=== PATIENT | female | born 1980 | race Caucasian/White ===

== ENCOUNTER 2017-05-30 09:25 | Emergency (ER) ==
[2017-05-30 09:25] VITALS: BMI 28.3
[2017-05-30 09:29] VITALS: BP 141/84; TEMP 98.6
[2017-05-30 10:12] LABS: BASOPHILS % (AUTO) 0.6 % (0.0-3.0); EOSINOPHILS # (AUTO) 0.1 K/ul (0.0-0.7); HEMOGLOBIN 13.1 g/dl (12.0-16.0); IMMATURE GRANULOCYTE % (AUTO) 0.4 % (0.0-5.0); LYMPHOCYTES # (AUTO) 1.9 K/uL (0.60-3.4); LYMPHOCYTES % (AUTO) 36.3 (10.0-50.0); MEAN CORPUSCULAR HEMOGLOBIN 27.5 pg (27.0-31.0); MEAN CORPUSCULAR HGB CONC 32.8 (31.8-35.4); MEAN CORPUSCULAR VOLUME 83.9 fl (81.0-99.0); MONOCYTES # (AUTO) 0.5 K/uL (0.4-2.0); MONOCYTES % (AUTO) 9.2 (0-10); NEUTROPHILS # (AUTO) 2.7 K/ul (2.0-6.9); NEUTROPHILS % (AUTO) 52.5; PLATELET COUNT 391 10^3/uL (140-440); RED BLOOD COUNT 4.77 10^6/ul (4.20-5.40); WHITE BLOOD COUNT 5.21 K/ul (4.6-10.2)
[2017-05-30 10:28] LABS: SERUM PREGNANCY INTERNAL QC INTERNAL QC VALID
[2017-05-30 10:43] LABS: ALBUMIN 3.6 g/dL (3.4-5.0); ALBUMIN/GLOBULIN RATIO 1.2; ANION GAP 14.2; BILIRUBIN,TOTAL 0.62 mg/dL (0.00-1.20); BUN/CREATININE RATIO 9.41; CALCIUM 9.2 mg/dL (8.2-10.2); CREATININE 0.85 mg/dL (0.60-1.30); POTASSIUM 4.2 mmol/L (3.5-5.10); TOTAL PROTEIN 6.6 g/dL (6.4-8.2); TROPONIN I 0.016 ng/ml (0.0000-0.4000)
--- NOTE | 2017-05-30 10:49 | DI ---
EXAM: Two views of the chest. History: Chest pain. Comparison: Chest radiograph 01/03/2013 Findings: Heart size is normal. No focal consolidation. No appreciable pleural fluid and no pneumo thorax. No acute osseous abnormalities. Impression: No acute cardiopulmonary process.
--- NOTE | 2017-05-30 11:15 | ED.PDOC ---
General ED Provider: Dr. LAITH FAYE Chief Complaint: Chest Pain Stated Complaint: CHEST PAIN Time Seen by Physician: 09:30 ([facility]) Mode of Arrival: Walk-In Information Source: Patient Exam Limitations: No limitations Primary Care Provider: ABELARDO GARCIA Nursing and Triage Documentation Reviewed and Agree: Yes (UNDER STRESS FROM WORK SCHOOL , ) Cardiovascular Complaint Exam - Chest Pain Complaint/Exam Onset: Gradual Duration: TODAY Symptoms Are: Resolved Length of Chest Pain Episodes: 20 MIN Initial Severity: Mild Current Severity: Mild Location: Reports: Discrete, Midsternal Pain Radiates: Reports: None Character: Reports: Dull, Aching Aggravating: Reports: None Alleviating: Reports: None Associated Signs and Symptoms: Denies: Diaphoresis, Nausea, Vomiting, Fever, Palpitations, Cough, Hemoptysis, Back pain, Abdominal pain, Dizziness, Short of air, Calf pain, Calf swelling Related Surgical History: Reports: None History of Healthcare-Acquired Pneumonia: Reports: No AMI/ACS Risk Factors: Reports: None TAD Risk Factors: Reports: None Pulmonary Embolism Risk Factors: Reports: None Prior Care for this Complaint: No Recent Stress Test: No Recent Echo/LV Function: No JVD Present: No Subcutaneous Emphysema Present: No Diminshed Breath Sounds: No Reproducible Chest Wall Pain: No Bilateral Pulses Present: No Unequal Pulses Noted: No If Risk Factors for AMI/ACS Consider: EKG, Cardiac Enzymes Differential Diagnoses: ACS, Stable Angina Review of Systems - Review Of Systems Constitutional: Reports: No symptoms Eyes: Reports: No symptoms Ears, Nose, Mouth, Throat: Reports: No symptoms Respiratory: Reports: No symptoms Cardiac: Reports: Chest pain GI: Reports: No symptoms : Reports: No symptoms Musculoskeletal: Reports: No symptoms Skin: Reports: No symptoms Neurological: Reports: No symptoms Endocrine: Reports: No symptoms Hematologic/Lymphatic: Reports: No symptoms All Other Systems: Reviewed and Negative Past Medical History - Past Medical History Previously Healthy: Yes Endocrine: Reports: Unknown Cardiovascular: Reports: Unknown Respiratory: Reports: Unknown Hematological: Reports: Unknown Gastrointestinal: Reports: Unknown Genitourinary: Reports: Unknown Neuro/Psych: Reports: Unknown Musculoskeletal: Reports: Unknown Cancer: Reports: Unknown Last Menstrual Period: 1 week ago - Surgical History General Surgical History: Reports: Unknown - Family History Family History: Reports: Unknown - Social History Smoking Status: Never smoker Hx Substance Use: No Alcohol Screening: Occasionally Physical Exam - Physical Exam Appearance: Well-appearing, No pain distress, Well-nourished Eyes: SARAH, EOMI, Conjunctiva clear ENT: Ears normal, Nose normal, Oropharynx normal Respiratory: Airway patent, Breath sounds clear, Breath sounds equal, Respirations nonlabored Cardiovascular: RRR, Pulses normal, No rub, No murmur GI/: Soft, Nontender, No masses, Bowel sounds normal, No Organomegaly Musculoskeletal: Normal strength, ROM intact, No edema, No calf tenderness Skin: Warm, Dry, Normal color Neurological: Sensation intact, Motor intact, Reflexes intact, Cranial nerves intact, Alert, Oriented Psychiatric: Affect appropriate, Mood appropriate Interpretation - Radiology Interpretation Radiology Interpretation By: Radiologist Radiology Results: Negative Exam Interpreted: CXR - Sales Support Specialist Rate: Normal Rhythm: Sinus Ectopy: None Critical Care Note - Critical Care Note Total Time (mins): 0 Course - Course Hematology/Chemistry: 05/30/17 09:55 05/30/17 09:55 Orders, Labs, Meds: Lab Review 05/30/17 05/30/17 05/30/17 09:55 09:55 09:55 WBC 5.21 RBC 4.77 Hgb 13.1 Hct 40.0 MCV 83.9 MCH 27.5 MCHC 32.8 RDW Coeff of Ruba 15.7 H Plt Count 391 Immature Gran % (Auto) 0.4 Neut % (Auto) 52.5 Lymph % (Auto) 36.3 [place] % (Auto) 9.2 Eos % (Auto) 1.0 Baso % (Auto) 0.6 Immature Gran # (Auto) 0.0 Neut # 2.7 Lymph # 1.9 [place] # 0.5 Eos # 0.1 Baso # 0.0 Sodium 140 Potassium 4.2 Chloride 108 H Carbon Dioxide 22 Anion Gap 14.2 BUN 8 Creatinine 0.85 Estimated GFR (MDRD) 75.00 BUN/Creatinine Ratio 9.41 Glucose 99 Calcium 9.2 Total Bilirubin 0.62 AST 17 ALT 19 Alkaline Phosphatase 81 Total Creatine Kinase 93 Troponin I 0.0160 Total Protein 6.6 Albumin 3.6 Globulin 3.0 Albumin/Globulin Ratio 1.20 Serum , Qual Negative Orders Category Date Time Status EKG-(ED ONLY) Stat CARDIO 05/30/17 09:38 Completed CBC W/ AUTO DIFF Stat LAB 09/22/17 09:55 Completed COMPREHENSIVE METABOLIC PANEL Stat LAB 05/30/17 09:55 Completed CREATINE KINASE Stat LAB 05/30/17 09:55 Completed D-DIMER Stat LAB 05/30/17 09:55 Received SERUM Stat LAB 05/30/17 09:55 Completed TROPONIN I Stat LAB 05/30/17 09:55 Completed CHEST, 2 VIEWS PA & LAT Stat RADS 05/30/17 09:37 Completed Vital Signs: Temp Pulse Resp BP Pulse Ox 05/30/17 09:26 98.6 F 94 H 20 141/84 H 95 SERGIO Risk Score SERGIO Risk Score: Risk Score Odds of by 30D 0 0.1 (0.1-0.2) 1 0.3 (0.2-0.3) 2 0.4 (0.3-0.5) 3 0.7 (0.6-0.9) 4 1.2 (1.0-1.5) 5 2.2 (1.9-2.6) 6 3.0 (2.5-3.6) 7 4.8 (3.8-6.1) Departure - Departure Time of Disposition: 11:13 (PT REPORTS PF NO CHEST PAIN DURING HER STRENOUS EXCERSIZE DAILY 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) Disposition: HOME SELF-CARE Discharge Problem: Chest pain Instructions: Angina (ED), Chest Pain (ED), Chest Wall Pain (ED), Thoracic Pain (ED), Noncardiac Chest Pain (ED) Condition: Good Pt referred to PMD for follow-up: Yes Allergies/Adverse Reactions: Allergies Sulfa (Sulfonamide Antibiotics) Adverse Reaction (Verified 05/30/17 09:29) sulfur dioxide Adverse Reaction (Verified 05/30/17 09:29) Home Medications: Ambulatory Orders [place]-3 Fatty Acids/Fish Oil [Fish Oil 1,000 mg Capsule] 1,000 mg PO DIRECTED 08/09/13 Lamotrigine [Lamictal Xr] 300 mg PO DAILY 08/29/16 Lorazepam 1 - 2 tab PO Q4H PRN 08/29/16
== END 2017-05-30 11:23 | disposition home or self-care (01) ==
LOC: ED 09:25
DX: R07.9 Chest pain, unspecified (principal)
CPT/HCPCS: 36415; 80053; 82550; 84484; 84703; 85025; 85379; 93005; 93010; 99283

== ENCOUNTER 2018-07-12 04:12 | Emergency (ER) | payer OTHER ==
[2018-07-12 04:21] VITALS: BP 125/83; TEMP 98.2; BMI 29.8
[2018-07-12] MEDS ORDERED: PROTONIX IV IVP STA (04:29)
[2018-07-12] MEDS ORDERED: ZOFRAN 4 MG/2 ML IVP STA (04:29)
--- NOTE | 2018-07-12 04:37 | ED.PDOC ---
General ED Provider: Dr. RUSLAN GAXIOLA Chief Complaint: Nausea/Vomiting Stated Complaint: Patient is a 38 year old female who comes to the ER with Complaints of nasuea that started last evening after eating afghan food. She states that she has not been able to sleep with cramping in her belly. Has had her gall bladder taken out in the past. Denies any vomiting. Time Seen by Physician: 04:30 Mode of Arrival: Walk-In Information Source: Patient Exam Limitations: No limitations Primary Care Provider: MALINA HUNTER Nursing and Triage Documentation Reviewed and Agree: Yes Does patient meet sepsis criteria?: No System Inflammatory Response Syndrome: Not Applicable Sepsis Protocol: For patient's 13 years and over: Temp is 96.8 and below OR 101 and greater Pulse >90 BPM Resp >20/minute Acutely Altered Mental Status Are patient's symptoms suggestive of a new infection, such as: -Pneumonia -Skin, Soft Tissue -Endocarditis -UTI -Bone, Joint Infection -Implantable Device -Acute Abdominal Infection -Wound Infection -Meningitis -Blood Stream Catheter Infection -Unknown GI Complaint Exam - Abdominal Pain Complaint/Exam Onset: Gradual Duration: last night Symptoms Are: Still present Timing: Constant Initial Severity: Mild Current Severity: Moderate Location of Pain: Diffuse Character: Reports: Cramping Aggravating: Reports: Food (afghan ) Alleviating: Reports: None Associated Signs and Symptoms: Reports: Nausea. Denies: Vomiting AAA Risk Factors: Reports: None Cardiac Risk Factors: Reports: None Ectopic Risk Factors: Reports: None Surgical Obstruction Risk Factors: Reports: Prior abdominal surgery Related Surgical History: Reports: None Patient Rh Status: Unknown Abdominal Findings: Absent: Abdominal distention, Rebound tenderness, CVA Tenderness Differential Diagnoses: Gastroenteritis, Other (gastritis ) Review of Systems - Review Of Systems Constitutional: Reports: No symptoms Eyes: Reports: No symptoms Ears, Nose, Mouth, Throat: Reports: No symptoms Respiratory: Reports: No symptoms Cardiac: Reports: No symptoms GI: Reports: Abdominal pain (Cramping ), Nausea, Poor appetite. Denies: Vomiting : Reports: No symptoms Musculoskeletal: Reports: No symptoms Skin: Reports: No symptoms Neurological: Reports: Anxiety Endocrine: Reports: No symptoms Hematologic/Lymphatic: Reports: No symptoms All Other Systems: Reviewed and Negative Past Medical History - Past Medical History Previously Healthy: Yes Endocrine: Reports: None Cardiovascular: Reports: None Respiratory: Reports: None Hematological: Reports: None Gastrointestinal: Reports: None Genitourinary: Reports: None Neuro/Psych: Reports: Anxiety, Bipolar Disorder Musculoskeletal: Reports: Unknown Cancer: Reports: Skin (melenoma ) Last Menstrual Period: PRESENTLY - Surgical History General Surgical History: Reports: Cholecystectomy, Tonsillectomy, Adenoidectomy , Other (wisdom teeth extracted, LEAP procedure, Abdominal plasy ) - Family History Family History: Reports: Unknown - Social History Smoking Status: Never smoker Hx Substance Use: No Alcohol Screening: Occasionally - Immunizations Tetanus Shot up to Date: Yes Physical Exam - Physical Exam Appearance: Ill-appearing Ill-appearing: Moderate Pain Distress: Mild Eyes: SARAH, EOMI, Conjunctiva clear Neck: Supple Respiratory: Airway patent, Breath sounds clear, Breath sounds equal, Respirations nonlabored Cardiovascular: RRR, Pulses normal, No rub, No murmur GI/: Soft, No masses, Bowel sounds normal, No Organomegaly, Tender (mild ( feels more nauseated ) ) Musculoskeletal: Normal strength, ROM intact, No edema, No calf tenderness Skin: Warm, Dry, Normal color Neurological: Sensation intact, Motor intact, Reflexes intact, Cranial nerves intact, Alert, Oriented Psychiatric: Anxious Critical Care Note - Critical Care Note Total Time (mins): 0 Course - Course Hematology/Chemistry: 07/12/18 04:35 07/12/18 04:35 Orders, Labs, Meds: Lab Review 07/12/18 07/12/18 07/12/18 04:25 04:25 04:35 WBC 7.61 RBC 4.37 Hgb 11.2 L Hct 34.5 L MCV 78.9 L MCH 25.6 L MCHC 32.5 RDW Coeff of Ruba 15.9 H Plt Count 392 Immature Gran % (Auto) 0.1 Neut % (Auto) 55.4 Lymph % (Auto) 32.2 [place] % (Auto) 8.9 Eos % (Auto) 3.0 Baso % (Auto) 0.4 Immature Gran # (Auto) 0.0 Neut # (Auto) 4.2 Lymph # (Auto) 2.5 [place] # (Auto) 0.7 Eos # (Auto) 0.2 Baso # (Auto) 0.0 Sodium Potassium Chloride Carbon Dioxide Anion Gap BUN Creatinine Estimated GFR (MDRD) BUN/Creatinine Ratio Glucose Calcium Total Bilirubin AST ALT Alkaline Phosphatase Total Protein Albumin Globulin Albumin/Globulin Ratio Amylase Lipase Urine Color Yellow Urine Clarity Slightly Urine pH 8.5 Ur Specific [place] 1.015 Urine Protein 1+ Urine Glucose (UA) Negative Urine Ketones Negative Urine Blood 3+ Urine Nitrite Negative Urine Bilirubin Negative Urine Urobilinogen 0.2 Ur Leukocyte Esterase 1+ Urine Microscopic RBC 2-5 Urine Microscopic WBC 2-5 Ur Squamous Epith Cells 5-10 Urine Bacteria 1+ Urine Test Negative 07/12/18 04:35 WBC RBC Hgb Hct MCV MCH MCHC RDW Coeff of Ruba Plt Count Immature Gran % (Auto) Neut % (Auto) Lymph % (Auto) [place] % (Auto) Eos % (Auto) Baso % (Auto) Immature Gran # (Auto) Neut # (Auto) Lymph # (Auto) [place] # (Auto) Eos # (Auto) Baso # (Auto) Sodium 135.7 L Potassium 3.84 Chloride 105.5 Carbon Dioxide 26.1 Anion Gap 7.94 BUN 6.1 L Creatinine 0.82 Estimated GFR (MDRD) 78.00 BUN/Creatinine Ratio 7.43 Glucose 96.2 Calcium 8.50 Total Bilirubin 0.49 AST 22.4 ALT 18.9 Alkaline Phosphatase 97.9 Total Protein 6.84 Albumin 4.05 Globulin 2.79 Albumin/Globulin Ratio 1.45 Amylase 131.2 H Lipase 86.5 Urine Color Urine Clarity Urine pH Ur Specific [place] Urine Protein Urine Glucose (UA) Urine Ketones Urine Blood Urine Nitrite Urine Bilirubin Urine Urobilinogen Ur Leukocyte Esterase Urine Microscopic RBC Urine Microscopic WBC Ur Squamous Epith Cells Urine Bacteria Urine Test Orders Category Date Time Status ED IV/MEDIPORT/POWERPORT .ONCE EMERGENCY 07/12/18 04:29 Active AMYLASE Stat LAB 07/12/18 04:35 Completed CBC W/ AUTO DIFF Stat LAB 07/12/18 04:35 Completed COMPREHENSIVE METABOLIC PANEL Stat LAB 07/12/18 04:35 Completed LIPASE Stat LAB 07/12/18 04:35 Completed URINALYSIS C & S IF INDICATED Stat LAB 07/12/18 04:25 Completed URINE CULTURE Stat LAB 07/12/18 04:54 Received URINE Stat LAB 07/12/18 04:25 Completed 0.9 % Sodium Chloride [Saline Flush] MEDS 07/12/18 04:29 Ordered 1 syr IVF PRN PRN Ondansetron HCl/Pf [Zofran 4 mg/2 ml] MEDS 07/12/18 04:29 Discontinued 4 mg IVP ONCE STA Pantoprazole Sodium [Protonix IV] MEDS 07/12/18 04:29 Discontinued 40 mg IVP ONCE STA Medications Generic Name Dose Route Start Last Admin Trade Name Freq PRN Reason Stop Dose Admin Sodium Chloride 1 syr 07/12/18 04:29 07/12/18 04:45 Saline Flush IVF 1 syr PRN PRN Administration To flush IV Discontinued Medications Generic Name Dose Route Start Last Admin Trade Name Freq PRN Reason Stop Dose Admin Ondansetron HCl 4 mg 07/12/18 04:29 07/12/18 04:41 Zofran 4 Mg/2 Ml IVP 07/12/18 04:30 4 mg ONCE STA Administration Pantoprazole Sodium 40 mg 07/12/18 04:29 07/12/18 04:42 Protonix Iv IVP 07/12/18 04:30 40 mg ONCE STA Administration Vital Signs: Temp Pulse Resp BP Pulse Ox 07/12/18 04:13 98.2 F 80 18 125/83 97 Departure - Departure Time of Disposition: 05:41 Disposition: HOME SELF-CARE Discharge Problem: Nausea, Vomiting, Gastritis and duodenitis Instructions: Gastritis (ED) Condition: Fair Pt referred to PMD for follow-up: Yes IPMP verified?: No Additional Instructions: Take Omeprazole as prescribed Take your anxiety medications as needed Follow up with PCP in 3 days Prescriptions: Omeprazole 20 mg PO DAILY LAB #30 capsule. Allergies/Adverse Reactions: Allergies Sulfa (Sulfonamide Antibiotics) Adverse Reaction (Verified 07/12/18 04:21) sulfur dioxide Adverse Reaction (Verified 07/12/18 04:21) Home Medications: Ambulatory Orders [place]-3 Fatty Acids/Fish Oil [Fish Oil 1,000 mg Capsule] 1,000 mg PO DIRECTED 08/09/13 Lorazepam 1 - 2 tab PO Q4H PRN 08/29/16 Lamotrigine [Lamictal Xr] 300 mg PO DAILY 02/19/18 Omeprazole 20 mg PO DAILY LAB #30 capsule. 07/12/18 Disposition Discussed With: Patient
[2018-07-12 05:02] LABS: URINE PREGNANCY TEST NEGATIVE (NEGATIVE)
== END 2018-07-12 05:58 | disposition home or self-care (01) ==
LOC: ED 04:12
DX: K29.70 Gastritis, unspecified, without bleeding (principal); K29.80 Duodenitis without bleeding
CPT/HCPCS: 36415; 80053; 81001; 81025; 82150; 83690; 85025; 87086; 96374; 96375; 99283